=== PATIENT | male | born 1960 | race American Indian/Alaskan Native ===

== ENCOUNTER 2017-12-26 08:20 | Emergency (ER) | payer BC ==
--- NOTE | 2017-12-26 09:21 | Emergency Department Report ---
ED Neck Pain/Injury HPI - General Chief Complaint: Neck Pain/Injury Stated Complaint: NECK HURT/PAIN;DOC ORDER AN X RAY Time Seen by Provider: 12/26/17 09:05 Mode of arrival: Ambulatory Limitations: No Limitations - History of Present Illness MD Complaint: neck pain, upper back pain -: month(s) Place: home Radiation: left upper extremity Severity: moderate Quality: sharp Context: turning/bending Associated Symptoms: none - Related Data Previous Rx's Medication Instructions Recorded Last Taken Type Sulfamethoxazole/Trimethoprim 1 each PO BID #10 tablet 01/17/14 Unknown Rx [Bactrim Ds] amLODIPine [Norvasc] 5 mg PO DAILY #30 tab 01/17/14 Unknown Rx Allergies Allergy/AdvReac Type Severity Reaction Status Date / Time No Known Allergies Allergy Verified 12/26/17 08:20 ED Review of Systems ROS: Stated complaint: NECK HURT/PAIN;DOC ORDER AN X RAY Other details as noted in HPI Comment: All other systems reviewed and negative Constitutional: denies: chills, fever Respiratory: denies: cough, orthopnea Cardiovascular: denies: chest pain, palpitations Musculoskeletal: denies: back pain ED Past Medical Hx - Past Medical History Hx Hypertension: Yes - Surgical History Additional Surgical History: femur surgery - Social History Smoking Status: Current Every Day Smoker Substance Use Type: Marijuana - Medications Home Medications: Home Medications Medication Instructions Recorded Confirmed Last Taken Type Sulfamethoxazole/Trimethoprim 1 each PO BID #10 tablet 01/17/14 Unknown Rx [Bactrim Ds] amLODIPine [Norvasc] 5 mg PO DAILY #30 tab 01/17/14 Unknown Rx ED Physical Exam - General Limitations: No Limitations General appearance: alert, in no apparent distress - Head Head exam: Present: atraumatic, normocephalic, normal inspection - Eye Eye exam: Present: normal appearance, PERRL - ENT ENT exam: Present: normal exam, normal orophraynx, mucous membranes moist - Neck Neck exam: Present: normal inspection, full ROM. Absent: tenderness, meningismus, lymphadenopathy, thyromegaly - Respiratory Respiratory exam: Present: normal lung sounds bilaterally - Cardiovascular Cardiovascular Exam: Present: regular rate, normal rhythm, normal heart sounds - GI/Abdominal GI/Abdominal exam: Present: soft, normal bowel sounds. Absent: distended, tenderness, guarding, rebound, rigid, organomegaly, mass, bruit, pulsatile mass , hernia - Extremities Exam Extremities exam: Present: normal inspection, full ROM, normal capillary refill - Back Exam Back exam: Present: normal inspection, full ROM. Absent: tenderness, CVA tenderness (R), CVA tenderness (L), muscle spasm, paraspinal tenderness, vertebral tenderness - Neurological Exam Neurological exam: Present: alert, oriented X3, CN II-XII intact, normal gait - Skin Skin exam: Present: warm, intact, normal color ED Course Vital Signs 12/26/17 08:23 Temperature 97.7 F Pulse Rate 82 Respiratory 18 Rate Blood Pressure 160/112 O2 Sat by Pulse 97 Oximetry ED Medical Decision Making - Radiology Data Radiology results: report reviewed Referring Physician: SAIMA OWENS Patient Name: CORKY WORRELL Date of : 1960 Sex: Male Report Date: 2017-12-26 Report Status: [place] [address] XRay Report Signed Patient: CORKY WORRELL MR#: [id number] : 1960 Acct:[id number] Age/Sex: 57 / M ADM Date: 12/26/17 Loc: ED Attending Dr: Ordering Physician: SAIMA OWENS Date of Service: 12/26/17 Procedure(s): XR spine cervical 2-3V Accession Number(s): [id number] cc: SAIMA OWENS Fluoro Time In Minutes: FINAL REPORT EXAM: XR SPINE CERVICAL 2-3V HISTORY: neck injury COMPARISON: None. TECHNIQUE: Three views of the cervical spine FINDINGS: There is no acute fracture or dislocation. The vertebral body heights are maintained. There is intervertebral disc space narrowing at C3-C4 and C5-C6 with anterior and uncovertebral osteophyte formation. There is mild diffuse facet arthropathy. The posterior elements are intact. The paravertebral soft tissues are normal. The airway is patent. IMPRESSION: Degenerative changes of the cervical spine without acute fracture or dislocation. Transcribed By: SALAZAR Dictated By: MELISSA MARTINEZ MD Electronically Authenticated By: MELISSA MARTINEZ MD Signed Date/Time: 12/26/17 1023 DD/ 1023 TD/TT: 12/26/17 1023 Critical care attestation.: If time is entered above; I have spent that time in minutes in the direct care of this critically ill patient, excluding procedure time. ED Disposition Clinical Impression: Cervical radiculopathy Disposition: - TO HOME OR SELFCARE Is pt being admited?: No Condition: Stable Instructions: Cervical Radiculopathy (ED) Referrals: PRIMARY CARE, [Primary Care Provider] - 3-5 Days
--- NOTE | 2017-12-26 10:28 | XRay Report ---
FINAL REPORT EXAM: XR SPINE CERVICAL 2-3V HISTORY: neck injury COMPARISON: None. TECHNIQUE: Three views of the cervical spine FINDINGS: There is no acute fracture or dislocation. The vertebral body heights are maintained. There is intervertebral disc space narrowing at C3-C4 and C5-C6 with anterior and uncovertebral osteophyte formation. There is mild diffuse facet arthropathy. The posterior elements are intact. The paravertebral soft tissues are normal. The airway is patent. IMPRESSION: Degenerative changes of the cervical spine without acute fracture or dislocation.
[2017-12-26 12:08] VITALS: BP 149/99
== END 2017-12-26 11:03 | disposition home or self-care (01) ==
LOC: ED 08:20
DX: M54.12 Radiculopathy, cervical region (principal); I10 Essential (primary) hypertension; F17.200 Nicotine dependence, unspecified, uncomplicated; F12.10 Cannabis abuse, uncomplicated
CPT/HCPCS: 72040